=== PATIENT | male | born 1985 | race Caucasian/White ===

== ENCOUNTER 2020-04-19 01:05 | Emergency (ER) | payer SELFPAY ==
[~2020-04-19] VITALS: Ht 182.9 cm; Wt 90.7 kg
[~2020-04-19 01:05] MED LIST: CRUTCH4 USE; HYDACE10 PO; HYDACE10B PO; HYDACE5 PO; HYDACE5325 PO; IBUP800 PO; Norco 5-325 Ta1 EACH PO; OXYACE7.5T PO
== END 2020-04-19 01:45 | disposition home or self-care (01) ==
LOC: ER 01:05
DX: R13.10 Dysphagia, unspecified (principal); F17.210 Nicotine dependence, cigarettes, uncomplicated; Z88.0 Allergy status to penicillin
CPT/HCPCS: 99283

== ENCOUNTER 2021-01-20 15:02 | Emergency (ER) | payer OTHER ==
[~2021-01-20] VITALS: Ht 180.3 cm; Wt 92.5 kg
[2021-01-21] MEDS ORDERED: Prednisone20 MG PO (23:52)
[2021-01-21] MEDS ORDERED: ALLERCLEAR10 MG PO (23:52)
[2021-01-21] MEDS ORDERED: EPIPEN0.3 MG/0.3 IM (23:52)
== END 2021-01-20 17:05 | disposition home or self-care (01) ==
LOC: ER 15:02
DX: L50.9 Urticaria, unspecified (principal); F17.210 Nicotine dependence, cigarettes, uncomplicated
CPT/HCPCS: 96374; 96375; 99282-25; J1200; J2930

== ENCOUNTER 2021-01-21 20:20 | Emergency (ER) | payer OTHER ==
[~2021-01-21] VITALS: Ht 180.3 cm; Wt 92.5 kg
[2021-01-21] MEDS ORDERED: ALLERCLEAR10 MG PO (23:52)
[2021-01-21] MEDS ORDERED: Prednisone20 MG PO (23:52)
[2021-01-21] MEDS ORDERED: EPIPEN0.3 MG/0.3 IM (23:52)
== END 2021-01-21 23:59 | disposition home or self-care (01) ==
LOC: ER 20:20
DX: L50.0 Allergic urticaria (principal); Z88.0 Allergy status to penicillin
CPT/HCPCS: 96372-59; 96374; 96375; 99282-25; A9270; J0171; J1200; J2930

== ENCOUNTER 2021-07-23 20:35 | Emergency (ER) | payer OTHER ==
[~2021-07-23] VITALS: Ht 182.9 cm; Wt 97.5 kg
[~2021-07-23 20:35] MED LIST changes: +ALLERCLEAR10 MG PO; +EPIPEN0.3 MG/0.3 IM; +Prednisone20 MG PO
== END 2021-07-23 21:28 | disposition left against medical advice (07) ==
LOC: ER 20:35
DX: S81.811A Laceration without foreign body, right lower leg, initial encounter (principal); Z53.21 Procedure and treatment not carried out due to patient leaving prior to being seen by health care provider
CPT/HCPCS: 99282

== ENCOUNTER 2022-02-04 16:30 | Emergency (ER) | payer OTHER ==
[~2022-02-04] VITALS: Ht 182.9 cm; Wt 95.2 kg
== END 2022-02-04 19:15 | disposition home or self-care (01) ==
LOC: ER 16:30
DX: S41.121A Laceration with foreign body of right upper arm, initial encounter (principal); F17.210 Nicotine dependence, cigarettes, uncomplicated; Z23 Encounter for immunization; W26.9XXA Contact with unspecified sharp object(s), initial encounter; Z79.52 Long term (current) use of systemic steroids; Y99.0 Civilian activity done for income or pay; Z88.0 Allergy status to penicillin; Z79.899 Other long term (current) drug therapy
CPT/HCPCS: 90714

== ENCOUNTER 2023-04-18 17:00 | Emergency (ER) | payer OTHER ==
[~2023-04-18] VITALS: Ht 180.3 cm; Wt 99.8 kg
[2023-04-18 17:22] VITALS: BP 127/96
[2023-04-18] MEDS ORDERED: AMOCLA875 PO (17:44)
== END 2023-04-18 17:49 | disposition home or self-care (01) ==
LOC: ER 17:00
DX: S61.452A Open bite of left hand, initial encounter (principal); F17.210 Nicotine dependence, cigarettes, uncomplicated; Y04.0XXA Assault by unarmed brawl or fight, initial encounter; Z88.0 Allergy status to penicillin; Z79.52 Long term (current) use of systemic steroids; Z79.899 Other long term (current) drug therapy
CPT/HCPCS: 90471; 90715; 99282; A9270